=== PATIENT | female | born 1995 | race African-American/Black ===

== ENCOUNTER 2021-06-15 20:38 | Emergency (ER) | payer OTHER ==
[2021-06-16 20:53] LABS: SARS-CoV-2 PCR by NAA DETECTED (NotDetected)
== END 2021-06-16 00:02 | disposition home or self-care (01) ==
LOC: CSHERS 20:38
DX: U07.1 COVID-19 (principal); J45.909 Unspecified asthma, uncomplicated; F17.210 Nicotine dependence, cigarettes, uncomplicated
CPT/HCPCS: 99283; U0003; U0005

== ENCOUNTER 2022-02-17 12:18 | Emergency (ER) | payer OTHER ==
[2022-02-17 13:06] LABS: Bilirubin Neg (Negative); Blood, Urine 10 (Negative); Clarity Clear (Clear); Glucose, Urine (Dipstick) Normal (Negative); Ketone, Urine Negative (Negative); Leukocyte 25 (Negative); Nitrite Negative (Negative); Protein, Urine (Dipstick) Negative (Neg-Trace); Specific Gravity, Urine 1.015 (1.002-1.036); Urobilinogen Normal mg/dL (Less than 2); pH, Urine 6.5 (5.0-9.0)
[2022-02-17 13:22] LABS: Bacteria/HPF Rare-Few HPF (None Seen)
[2022-02-17 14:05] LABS: Actual Bicarbonate (HCO3v) 25 mEq/L (22-28); Base Excess -0.1 mEq/L (-2.0 to +3.0); Calcium, Ionized (venous) 1.13 mmol/L (1.16-1.32); Chloride (VBG) 104 mmol/L (98-106); Hemoglobin (Hb) 14.4 g/dL (11.7-15.5); Potassium (VBG) 3.95 mmol/L (3.70-5.30); Puncture Site Other Site; RapidComm Collect By CBN; Sodium 135.9 mmol/L (133-146); pH (venous) 7.37 (7.32-7.43)
[2022-02-17 14:26] LABS: Pregnancy Test - Urine (BHCG) Negative (Negative); Pregu Control Background? CLEAR/WHITE (CLR/WHITE); Pregu Control Bar Appear? YES (CONTROL BAR); Specific Gravity 1.015 (1.002-1.036)
[2022-02-17] MEDS ORDERED: Sterile Water 10 ML ONE (15:02)
[2022-02-17] MEDS ORDERED: cefTRIAXone\\ROCEPHIN 250 MG VIAL ONE (15:02)
[2022-02-17] MEDS ORDERED: Azithromycin 250 MG TAB ONE (15:03)
[2022-02-18 12:09] LABS: Chlam.trachomatis by PCR,Urine Not Detected (NotDetected)
== END 2022-02-17 15:23 | disposition home or self-care (01) ==
LOC: CSHERS 12:18
DX: N76.0 Acute vaginitis (principal); F17.210 Nicotine dependence, cigarettes, uncomplicated; Z20.2 Contact with and (suspected) exposure to infections with a predominantly sexual mode of transmission
CPT/HCPCS: 81003; 81015; 81025; 82805; 87491; 87591; 96372; 99283; J0696

== ENCOUNTER 2022-07-24 11:27 | Emergency (ER) | payer OTHER | END 2022-07-24 13:20 | disposition home or self-care (01) | LOC: CSHERS 11:27 | DX: S00.212A Abrasion of left eyelid and periocular area, initial encounter (principal); S09.90XA Unspecified injury of head, initial encounter; M25.562 Pain in left knee; F17.210 Nicotine dependence, cigarettes, uncomplicated; Y04.0XXA Assault by unarmed brawl or fight, initial encounter | CPT/HCPCS: 70450; 70486 ==